=== PATIENT | female | born 1995 | race Caucasian/White ===

== ENCOUNTER 2017-03-27 14:00 | Emergency (ER) | payer SELFPAY ==
[~2017-03-27] VITALS: Ht 180.3 cm; Wt 72.6 kg
[2017-03-27] MEDS ORDERED: ONDANSETRON ODT8 MG PO (15:14)
== END 2017-03-27 15:26 | disposition home or self-care (01) ==
LOC: ED 14:00
DX: R19.7 Diarrhea, unspecified (principal); F17.200 Nicotine dependence, unspecified, uncomplicated
CPT/HCPCS: 81001; 84703; 87491; 87591; 99284